=== PATIENT | female | born 1960 | race Caucasian/White ===

== ENCOUNTER 2023-02-28 04:07 | Day surgery (SDC) | payer OTHER ==
[2023-02-23 17:14] VITALS: BMI 22.1
[2023-02-28] MEDS ORDERED: PROPOFOL 20 ML ONE (08:56)
[2023-02-28] MEDS ORDERED: MIDAZOLAM HCL 2 MG/2 ML SINGLE DOSE VIAL ONE (08:57)
[2023-02-28] MEDS ORDERED: LIDOCAINE HCL/PF 2% SDV 5ML VIAL ONE (09:04)
[2023-02-28] MEDS ORDERED: DEXAMETHASONE SOD PHOSPHATE 4 MG/1 ML VIAL ONE (09:18)
[2023-02-28] MEDS ORDERED: ONDANSETRON 4 MG/2 ML VIAL ONE (09:18)
[2023-02-28] MEDS ORDERED: KETOROLAC TROMETHAMINE 30 MG/1 ML VIAL ONE (09:28)
[2023-02-28] MEDS ORDERED: PROMETHAZINE HCL 25 MG/1 ML VIAL IVPB PRN (09:46)
[2023-02-28] MEDS ORDERED: ONDANSETRON 4 MG/2 ML VIAL IVPUSH PRN ×2 (09:46→09:51)
[2023-02-28] MEDS ORDERED: oxyCODONE HCL 5 MG TABLET PO PRN ×2 (09:46→09:51)
[2023-02-28] MEDS ORDERED: IBUPROFEN 600 MG TABLET (FP) PO PRN (09:51)
[2023-02-28] MEDS ORDERED: IBUPROFEN 800 MG/8 ML IJ IVPB PRN (09:51)
[2023-02-28] MEDS ORDERED: ELECTROLYTE-148 SOLN 1,000 ML IV SCH (10:00)
[2023-02-28] MEDS ORDERED: LACTATED RINGERS SOLUTION 1,000 ML IV SCH (10:00)
[2023-02-28 11:53] VITALS: BP 130/70; PULSE 60; RESP 16; TEMP 98
== END 2023-02-28 11:45 | disposition home or self-care (01) ==
LOC: JASU-SURG 04:07
PROVIDERS: ATTEND Obstetrics & Gynecology
PROC: 0UB98ZZ Excision of Uterus, Via Natural or Artificial Opening Endoscopic (ICD-10-PCS; principal; 2023-02-28 09:00)
DX: D25.0 Submucous leiomyoma of uterus (principal)
CPT/HCPCS: 94760